=== PATIENT | female | born 1970 | race Caucasian/White ===

== ENCOUNTER 2018-09-07 08:14 | Day surgery (SDC) | payer BC ==
[~2018-09-07] VITALS: Ht 162.6 cm; Wt 81.6 kg
[2018-09-07] VITALS (8 sets, daily range): BP systolic 116–131; BP diastolic 64–85
--- NOTE | 2018-09-07 07:07 | Anethesia Preoperative Eval ---
Anesthesia Pre-op PMH/ROS General Date of Evaluation: Sep 07, 2018 Time of Evaluation: 07:03 Anesthesiologist: nito ASA Score: ASA 2 Mallampati Score Class I : Soft palate, uvula, fauces, pillars visible Class II: Soft palate, uvula, fauces visible Class III: Soft palate, base of uvula visible Class IV: Only hard plate visible Mallampati Classification: Class II Surgeon: lilibeth Diagnosis: gerd, colon screening Surgical Procedure: egd/colonoscopy Anesthesia History: none Social History: smoking - former smoker Family History: no anesthesia problems Allergies: Coded Allergies: No Known Allergies (Unverified , 11/27/12) Medications: see eMAR Patient NPO?: Yes Past Medical History Cardiovascular: Reports: other - hypercholesterolemia Pulmonary: Reports: other Gastrointestinal/Genitourinary: Reports: GERD, other - ibs,colon polyps, abdominal pain, endometriosis, interstial cystitis HEENT: Reports: other - sinusitis Anesthesia Pre-op Phys. Exam Physician Exam Constitutional: NAD Neurologic: CN 2-12 intact Cardiovascular: RRR Respiratory: CTA Gastrointestinal: S/NT/ND Airway Exam Mallampati Score: Class II MO: full Neck: flexible TMD: 2fb ROM: full Anesthesia Pre-op A/P Labs Labs Test 09/07/18 08:25 Urine HCG, Qualitative Negative (NEGATIVE) Risk Assessment & Plan Assessment: asa2 Plan: mac Status Change Before Surgery: No Pre-Antibiotics Drug: Cherelle Loaiza MD Sep 07, 2018 07:07
[~2018-09-07 08:14] MED LIST: Atropine Inj 1mg/10ml Syr IV PRN; DiphenhydrAMINE 50mg/ml Inj IVP PRN; Midazolam 2mg/2ml Inj IVP PRN; NEXIUM40 M1 PO; NEXIUM40 MG PO; VALACYCLOVIR500 MG ORAL; ZANTAC150 MG ORAL; fentaNYL 100 mcg/2 mL IV PRN
[2018-09-07] MEDS ORDERED: BENICAR20 MG ORAL (08:58)
[2018-09-07] MEDS ORDERED: Lidocaine 1% MPF 10mg/ml 5ml ONE (09:46)
[2018-09-07] MEDS ORDERED: Propofol 200mg/20ml IV ONE (09:46)
--- NOTE | 2018-09-07 09:57 | Pre-Procedure Note/Attestation ---
Pre-Procedure Note/Attestation Complete Prior to Procedure Planned Procedure: not applicable Procedure Narrative: esophagogastroduodenoscopy and colonoscopy Indications for Procedure Pre-Operative Diagnosis: gerd, screening colon Attestation I attest that I discussed the nature of the procedure; its benefits; risks and complications; and alternatives (and the risks and benefits of such alternatives ), prior to the procedure, with the patient (or the patient's legal event representative). I attest that, if there was a reasonable possibility of needing a blood transfusion, the patient (or the patient's legal event representative) was given the [facility] standardized written summary, pursuant to the [place] Blood Safety Act ([place] Health and Safety Code # 1645, as amended). I attest that I re-evaluated the patient just prior to the surgery and that there has been no change in the patient's H&P, except as documented below: Juan Jalloh MD Sep 07, 2018 09:57
--- NOTE | 2018-09-07 09:58 | Short Stay Surgery H&P ---
History of Present Illness History of Present Illness Chief Complaint GERD, abd pain h/o colon polyps HPI Bette Schwartz is a 47 year old female who was admitted on for Gerd/Colon Screening Patient History Allergies: Coded Allergies: No Known Allergies (Unverified , 11/27/12) Medication History Scheduled Esomeprazole Magnesium (Nexium), 40 MG PO DAILY, (Reported) Olmesartan Medoxomil (Benicar), 20 MG ORAL DAILY, (Reported) Valacyclovir Hcl* (Valtrex*), 500 MG ORAL TWICE A WEEK, (Reported) Review of Systems Cardiovascular: Reports: no symptoms Respiratory: Reports: no symptoms Skeletal: Reports: no symptoms Gastrointestinal: Reports: no symptoms Genitourinary: Reports: no symptoms Neurologic: Reports: no symptoms Endocrine: Reports: no symptoms Physical Exam Vital Signs Last Vital Signs Date Time Temp Pulse Resp B/P (MAP) Pulse Ox O2 Delivery O2 Flow Rate FiO2 09/07/18 08:52 Room Air 09/07/18 08:51 98.1 68 18 128/73 100 Labs Laboratory Tests Test 09/07/18 08:25 Urine HCG, Qualitative Negative (NEGATIVE) Skin: normal HENT: normal Heart: normal Lungs: normal Abdomen: normal Extremities: normal Plan Plan of Care esophagogastroduodenoscopy and colonoscopy Attestation Are the patient's medical conditions optimized for surgery? Attestation Response: yes Juan Jalloh MD Sep 07, 2018 09:58
--- NOTE | 2018-09-07 10:21 | Endoscopy Procedure Note ---
Endoscopy Procedure Note General Indication for Procedure: GERD, h/o colon polyps Procedures Performed: EGD, colonoscopy Operative Findings/Diagnosis: gastritis, colon polyp Specimen: yes Pt Tolerated Procedure Well: Yes Estimated Blood Loss: none Anesthesia Anesthesiologist: nito Anesthesia: MAC Inserted Devices Implant(s) used?: No Quality Quality of Bowel Preparation: Good Did scope reach the cecum?: Yes Was there any complications?: No GI Core Measures 50 yrs or older w/o bx or poly: No 10yrs. F/U not recommended: Yes If not recommended, why?: Above average risk 10 yrs. F/U needed: Yes 18 years or older w/prev. colo: Yes <3yrs. since last colonoscopy: No Juan Jalloh MD Sep 07, 2018 10:21
--- NOTE | 2018-09-07 12:55 | Immediate Post-Op Evaluation ---
Immediate Post-Op Evalulation Immediate Post-Op Evalulation Procedure: egd/colonoscopy/bx Date of Evaluation: Sep 07, 2018 Time of Evaluation: 10:39 IV Fluids: 500ml 0.9ns Blood Products: none Estimated Blood Loss: neglgible Blood Pressure Systolic: 131 Blood Pressure Diastolic: 76 Pulse Rate: 76 Respiratory Rate: 18 O2 Sat by Pulse Oximetry: 100 Temperature (Fahrenheit): 97.7 Pain Score (1-10): 0 Nausea: No Vomiting: No Complications none Patient Status: awake, reacts, patent Hydration Status: adequate Drug: Cherelle Loaiza MD Sep 07, 2018 12:55
--- NOTE | 2018-09-07 12:57 | 48 Hour Post Anesthesia Eval ---
Post Anesthesia Evaluation Procedure: egd/colonoscopy/bx Date of Evaluation: Sep 07, 2018 Time of Evaluation: 10:41 Blood Pressure Systolic: 116 0: 85 Pulse Rate: 59 Respiratory Rate: 18 Temperature (Fahrenheit): 97.7 O2 Sat by Pulse Oximetry: 100 Airway: patent Nausea: No Vomiting: No Pain Intensity: 0 Hydration Status: adequate Cardiopulmonary Status: stable Mental Status/LOC: patient returned to baseline Post-Anesthesia Complications: none Follow-up care needed: N/A Cherelle Thao MD Sep 07, 2018 12:57
--- NOTE | 2018-09-07 20:00 | Procedure Note ---
DATE OF PROCEDURE: 09/07/2018 SURGEON: Juan Jalloh M.D. ANESTHESIOLOGIST: Dr. De Jesus. PROCEDURE: Upper endoscopy with biopsy and colonoscopy with biopsy. ANESTHESIA: Per Dr. De Jesus. INSTRUMENT: Olympus adult flexible upper endoscope and colonoscope. INDICATION: Chronic GERD, history of colonic polyps, rectal bleeding. The procedure, risks, benefits, and possible consequences, including hemorrhage, aspiration, perforation and infection, and alternative treatments, were explained to the patient/legal guardian by Dr. Juan Jalloh and the patient/legal guardian understood and accepted these risks. DESCRIPTION OF PROCEDURE: After informed consent was obtained and the patient was adequately sedated, first Olympus upper endoscope was advanced from the mouth into the second portion of duodenum and retroflexion was performed in the stomach. The patient had evidence of very large inlet patches on both sides below the esophageal sphincter. In the stomach, there was diffuse gastritis. Random biopsy from antrum was obtained to rule out H. pylori infection. Otherwise, the rest of the upper examination grossly looked within normal limit. At this time, the upper endoscope was retrieved. The patient was turned over for colonoscopy. First, rectal exam was performed which was normal. Then, the scope was advanced from the rectum into the cecum documented by the appendix orifice, ileocecal valve, and right upper quadrant palpation. Quality of prep was good except for the cecum. Examination of the cecum was somewhat limited given the prep. The patient had one diminutive polyp in the descending colon, otherwise the rest of the exam grossly looked within normal limit. That polyp was removed with cold biopsy forceps technique. Retroflexion of rectum showed evidence of internal hemorrhoids, nonbleeding. SUMMARY OF FINDINGS: 1. Large inlet patches. 2. Gastritis, status post biopsy. 3. One diminutive colonic polyp removed. 4. Internal hemorrhoids. RECOMMENDATIONS: Follow up biopsy results and treat accordingly. Juan Jalloh M.D. DR: Hayden JOB#: [id number] CC:
== END 2018-09-07 11:20 | disposition home or self-care (01) ==
LOC: GAS 08:14
DX: Z12.11 Encounter for screening for malignant neoplasm of colon (principal); K63.5 Polyp of colon; K64.8 Other hemorrhoids; Z86.010 Personal history of colon polyps; K21.9 Gastro-esophageal reflux disease without esophagitis; K29.50 Unspecified chronic gastritis without bleeding; E78.00 Pure hypercholesterolemia, unspecified; K58.9 Irritable bowel syndrome, unspecified; N80.9 Endometriosis, unspecified; N30.10 Interstitial cystitis (chronic) without hematuria; Z87.891 Personal history of nicotine dependence
CPT/HCPCS: 43239; 45380; 81025; J2704

== ENCOUNTER → 2018-12-19 | Outpatient (CLI) | payer BC ==
[~2018-12-19] MED LIST changes: -Atropine Inj 1mg/10ml Syr IV PRN; +BENICAR20 MG ORAL; -DiphenhydrAMINE 50mg/ml Inj IVP PRN; -Midazolam 2mg/2ml Inj IVP PRN; -fentaNYL 100 mcg/2 mL IV PRN
== END | disposition home or self-care (01) ==
LOC: CAT 09:13
DX: R10.9 Unspecified abdominal pain (principal)
CPT/HCPCS: 74150

== ENCOUNTER → 2019-12-15 | Outpatient (CLI) | payer BC ==
--- NOTE | 2019-12-15 11:40 | Diagnostic Imaging Report ---
Indications: Low back pain Technique: Spiral acquisitions obtained through the lumbar spine. Multiplanar reconstructions were generated. No IV contrast utilized. Total dose length product 710 mGycm. CTDIvol(s) 20 mGy. Dose reduction achieved using automated exposure control Comparison: none Findings: Bony alignment is normal. Vertebral body heights are preserved. The disc spaces are preserved. No acute fractures. No dislocations. There is mild broad-based posterior disc protrusion at L5-S1 which does not significantly compromise the spinal canal. This may result in minimal narrowing of the bilateral neural foramina. At the remaining levels, no significant disc bulge or protrusion, spinal stenosis, or neural foraminal stenosis Included extraspinal soft tissues are unremarkable. Impression: No acute abnormality Broad-based posterior disc protrusion at L5-S1 without evidence of significant spinal canal compromise. There is minimal narrowing of the bilateral neural foramina, of doubtful significance The CT scanner at [facility] is accredited by the [employer] and the scans are performed using protocols designed to limit radiation exposure to as low as reasonably achievable to attain images of sufficient resolution adequate for diagnostic evaluation.
== END | disposition home or self-care (01) ==
LOC: CAT 15:44
DX: M54.5 Low back pain (principal); M51.27 Other intervertebral disc displacement, lumbosacral region
CPT/HCPCS: 72131